=== PATIENT | male | born 1950 | race Two or more races ===

== ENCOUNTER 2022-04-02 03:24 | Inpatient (IN) | payer OTHER, MEDICARE, MEDICAID ==
[~2022-04-02] VITALS: Ht 177.8 cm; Wt 97.9 kg
[2022-04-02 04:53] LABS: Basophils # (auto) 0.2 10 ^3/uL (0-0.2); Basophils % (auto) 1.7 % (0.0-2.0); Eosinophils # (auto) 0 10 ^3/uL (0-0.8); Eosinophils % (auto) 0.2 % (0.0-7.0); Hematocrit 45.2 % (41.0-53.0); Lymphocytes # (auto) 0.9 10 ^3/uL (0.4-5.4); Lymphocytes % (auto) 6.4 % (10.0-50.0); Mean Corpuscular Hgb Conc. 33.2 g/dL (32.0-36.0); Mean Corpuscular Volume 90.4 fL (80.0-100.0); Monocytes # (auto) 0.5 10 ^3/uL (0-1.3); Monocytes % (auto) 3.9 % (0.0-12.0); Neutrophils % (auto) 87.8 % (37.0-80.0); Nucleated Red Blood Cells % 0.1 %; Red Cell Distribution Width 15.8 % (11.8-14.3); White Blood Cell 13.7 10^3/uL (4.4-10.8)
[2022-04-02 05:28] LABS: BUN/Creatinine Ratio 41.3; Calcium 8.6 mg/dL (8.5-10.1); Potassium 4.1 mmol/L (3.5-5.1)
[2022-04-02 05:30] LABS: Bilirubin, Total 0.5 mg/dL (0.2-1.0); Total Protein 6.7 g/dL (6.4-8.2)
[2022-04-02] MEDS ORDERED: SODIUM CHLORIDE 0.9% 1,000 ML IV ONE ×2 (08:00)
[2022-04-02] MEDS ORDERED: cefTRIAXone 1GM/50ML D5W 50 ML IV ONE ×2 (09:15→09:45)
[2022-04-02] MEDS ORDERED: BUPR-160 PO (09:35)
[2022-04-02] MEDS ORDERED: ALPR0.255 PO (09:35)
[2022-04-02] MEDS ORDERED: MET50T PO (09:35)
[2022-04-02] MEDS ORDERED: DIVA125C8 PO (09:35)
[2022-04-02] MEDS ORDERED: FAMO-12 PO (09:35)
[2022-04-02] MEDS ORDERED: AMLO-489 PO (09:35)
[2022-04-02] MEDS ORDERED: HYDR10TA26 PO (09:35)
[2022-04-02] MEDS ORDERED: GLIP5TAB12 PO (09:35)
[2022-04-02] MEDS ORDERED: FLUO-259 PO (09:35)
[2022-04-02] MEDS ORDERED: LISI20TA28 PO (09:35)
[2022-04-02] MEDS ORDERED: SIMV-8 PO (09:35)
[2022-04-02] MEDS ORDERED: ASPI-325 PO (09:35)
[2022-04-02] MEDS ORDERED: METF-372 PO (09:35)
[2022-04-02 09:41] LABS: Cholesterol 193 mg/dL (< 200)
[2022-04-02 09:44] LABS: HDL Cholesterol 41 mg/dL (40-59); LDL Cholesterol 130 mg/dL (< 100); Triglycerides 81 mg/dL (< 150)
[2022-04-02] MEDS ORDERED: PANTOPRAZOLE 40 MG/10 ML VIAL INJ IV ONE (09:45)
[2022-04-02] MEDS ORDERED: DEXTROSE (50%) 50ML SYRG IV PRN (09:45)
[2022-04-02 10:22] LABS: INR 1.06 (0.9-1.15)
[2022-04-02] MEDS: PANTOPRAZOLE 40 MG/10 ML VIAL INJ IV SCH (10:31)
[2022-04-02] MEDS: FLUoxetine HCL 20 MG CAP PO SCH (10:40)
[2022-04-02] MEDS: ATORVASTATIN 20 MG TAB PO SCH (10:40)
[2022-04-02] MEDS: amLODIPine BESYLATE 5 MG TAB PO SCH (10:40)
[2022-04-02] MEDS: SODIUM CHLORIDE 0.9% 1,000 ML IV SCH ×2 (10:45→21:46)
[2022-04-02] MEDS: LISINOPRIL 20 MG TAB PO SCH (11:23)
[2022-04-02] MEDS: METOPROLOL TARTRATE 50 MG TAB PO SCH ×2 (11:23→21:45)
[2022-04-02] MEDS: ACCU-CHEK COMFORT CURVE STRIP VI SCH ×3 (11:30→21:10)
[2022-04-02] MEDS: InsuLIN REG 1unit/0.01ml Soln (100units/ml) SC SCH ×3 (11:34→21:11)
[2022-04-02] MEDS: hydrALAZINE HCL 10 MG TAB PO SCH ×2 (17:32→21:43)
[2022-04-02] MEDS: ACETAMINOPHEN 325 MG TAB PO PRN (21:47)
[2022-04-02 22:00] VITALS: BP 162/73
[2022-04-02 22:29] VITALS: BP 162/73
[2022-04-03] VITALS (7 sets, daily range): BP systolic 116–166; BP diastolic 62–83
[2022-04-03] MEDS: hydrALAZINE HCL 10 MG TAB PO SCH ×3 (05:27→21:18)
[2022-04-03] MEDS: ACETAMINOPHEN 325 MG TAB PO PRN ×2 (05:28→19:49)
[2022-04-03] MEDS: InsuLIN REG 1unit/0.01ml Soln (100units/ml) SC SCH ×4 (06:01→21:19)
[2022-04-03] MEDS: ACCU-CHEK COMFORT CURVE STRIP VI SCH ×4 (06:01→21:19)
[2022-04-03 06:30] LABS: Basophils # (auto) 0.1 10 ^3/uL (0-0.2); Basophils % (auto) 0.7 % (0.0-2.0); Eosinophils # (auto) 0.1 10 ^3/uL (0-0.8); Hematocrit 38.8 % (41.0-53.0); Lymphocytes # (auto) 1.8 10 ^3/uL (0.4-5.4); Lymphocytes % (auto) 17.4 % (10.0-50.0); Mean Corpuscular Hemoglobin 30.1 pg (28.0-32.0); Mean Corpuscular Hgb Conc. 33.4 g/dL (32.0-36.0); Monocytes # (auto) 0.7 10 ^3/uL (0-1.3); Neutrophils # (auto) 7.6 10 ^3/uL (1.6-8.6); Neutrophils % (auto) 73.9 % (37.0-80.0); Red Blood Cells 4.31 10^6/uL (4.5-5.90); Red Cell Distribution Width 15.6 % (11.8-14.3); White Blood Cell 10.3 10^3/uL (4.4-10.8)
[2022-04-03 06:44] LABS: Anion Gap 7 (5-15); Blood Urea Nitrogen 25 mg/dL (7-18); Carbon Dioxide 29 mmol/L (21-32); Chloride 105 mmol/L (98-107); Glucose 100 mg/dL (74-106); Potassium 3.5 mmol/L (3.5-5.1); Sodium 141 mmol/L (136-145)
[2022-04-03 06:49] LABS: Alanine Aminotransferase 15 U/L (16-61); Alkaline Phosphatase 61 U/L (45-117); Aspartate Aminotransferase < 3 U/L (15-37); BUN/Creatinine Ratio 38.5; Bilirubin, Total 0.8 mg/dL (0.2-1.0); GFR African American 154 mL/min; GFR Non-African American 128 mL/min; Total Protein 5.9 g/dL (6.4-8.2)
[2022-04-03] MEDS: cefTRIAXone 1GM/50ML D5W 50 ML IV SCH (10:06)
[2022-04-03] MEDS: PANTOPRAZOLE 40 MG/10 ML VIAL INJ IV SCH (10:06)
[2022-04-03] MEDS: ASPirin-EC 81 mg tab PO SCH (10:08)
[2022-04-03] MEDS: ATORVASTATIN 20 MG TAB PO SCH (10:09)
[2022-04-03] MEDS: METOPROLOL TARTRATE 50 MG TAB PO SCH ×2 (10:10→21:18)
[2022-04-03] MEDS: amLODIPine BESYLATE 5 MG TAB PO SCH (10:10)
[2022-04-03] MEDS: buPROPion HCL 100 MG TAB PO SCH (10:11)
[2022-04-03] MEDS: FLUoxetine HCL 20 MG CAP PO SCH (10:11)
[2022-04-03] MEDS: LISINOPRIL 20 MG TAB PO SCH (10:12)
[2022-04-03] MEDS: SODIUM CHLORIDE 0.9% 1,000 ML IV SCH (12:25)
[2022-04-03] MEDS ORDERED: ONDANSETRON HCL 4 MG/2 ML VIAL IV PRN (13:00)
[2022-04-03 13:54] LABS: Urine Bacteria NONE SEEN /hpf (None Seen); Urine Blood Negative /uL (Negative); Urine Mucus FEW (None Seen); Urine Specific Gravity 1.027 (1.001-1.035); Urine WBC 2 /hpf (0 - 3)
[2022-04-03 14:00] LABS: Alcohol, Urine < 3.0 mg/dL (0-10); Amphetamine Screen, Urine NEGATIVE (NEGATIVE); Barbiturate Scree,Urine NEGATIVE (NEGATIVE); Benzodiazephine Screen, Urine POSITIVE (NEGATIVE); Cannabinoid Screen, Urine NEGATIVE (NEGATIVE); Cocaine Screen, Urine NEGATIVE (NEGATIVE); Opiate Scree,Urine NEGATIVE (NEGATIVE); Phencyclidine Screen, Urine NEGATIVE (NEGATIVE)
[2022-04-04 05:00] VITALS: BP 166/68
[2022-04-04] MEDS: InsuLIN REG 1unit/0.01ml Soln (100units/ml) SC SCH ×4 (05:04→20:42)
[2022-04-04] MEDS: ACCU-CHEK COMFORT CURVE STRIP VI SCH ×4 (05:04→20:43)
[2022-04-04] MEDS: hydrALAZINE HCL 10 MG TAB PO SCH ×3 (05:07→23:51)
[2022-04-04 06:09] LABS: Basophils # (auto) 0.1 10 ^3/uL (0-0.2); Basophils % (auto) 0.7 % (0.0-2.0); Eosinophils # (auto) 0.2 10 ^3/uL (0-0.8); Eosinophils % (auto) 1.8 % (0.0-7.0); Hematocrit 38.9 % (41.0-53.0); Hemoglobin 13.4 g/dL (13.5-17.5); Lymphocytes # (auto) 2.2 10 ^3/uL (0.4-5.4); Lymphocytes % (auto) 25.2 % (10.0-50.0); Mean Corpuscular Hemoglobin 31.1 pg (28.0-32.0); Mean Corpuscular Hgb Conc. 34.5 g/dL (32.0-36.0); Mean Corpuscular Volume 90.2 fL (80.0-100.0); Monocytes # (auto) 0.7 10 ^3/uL (0-1.3); Monocytes % (auto) 8.3 % (0.0-12.0); Neutrophils # (auto) 5.5 10 ^3/uL (1.6-8.6); Red Blood Cells 4.31 10^6/uL (4.5-5.90); Red Cell Distribution Width 15.3 % (11.8-14.3); White Blood Cell 8.6 10^3/uL (4.4-10.8)
[2022-04-04 06:43] LABS: Potassium 3.6 mmol/L (3.5-5.1)
[2022-04-04 06:46] LABS: BUN/Creatinine Ratio 27.8; Calcium 8.3 mg/dL (8.5-10.1); Magnesium 1.8 mg/dL (1.6-2.6); Phosphorus 3.9 mg/dL (2.5-4.90)
[2022-04-04 08:00] VITALS: BP_SYST 143; BP_SYST 166; BP_DIAS 68; BP_DIAS 80
[2022-04-04] MEDS: PANTOPRAZOLE 40 MG/10 ML VIAL INJ IV SCH (08:27)
[2022-04-04] MEDS: cefTRIAXone 1GM/50ML D5W 50 ML IV SCH (08:27)
[2022-04-04] MEDS: ASPirin-EC 81 mg tab PO SCH (08:29)
[2022-04-04] MEDS: ATORVASTATIN 20 MG TAB PO SCH (08:31)
[2022-04-04] MEDS: amLODIPine BESYLATE 5 MG TAB PO SCH (08:34)
[2022-04-04] MEDS: METOPROLOL TARTRATE 50 MG TAB PO SCH ×2 (08:34→22:00)
[2022-04-04] MEDS: buPROPion HCL 100 MG TAB PO SCH (08:35)
[2022-04-04] MEDS: FLUoxetine HCL 20 MG CAP PO SCH (08:35)
[2022-04-04] MEDS: LISINOPRIL 20 MG TAB PO SCH (08:37)
[2022-04-04 12:00] VITALS: BP 157/64
[2022-04-04 16:00] VITALS: BP 114/70
[2022-04-04 20:00] VITALS: BP 157/64
[2022-04-04 22:00] VITALS: BP 154/62
[2022-04-05] VITALS (7 sets, daily range): BP systolic 133–157; BP diastolic 64–79
[2022-04-05] MEDS: ACCU-CHEK COMFORT CURVE STRIP VI SCH ×4 (06:58→21:51)
[2022-04-05] MEDS: InsuLIN REG 1unit/0.01ml Soln (100units/ml) SC SCH ×4 (07:00→21:53)
[2022-04-05] MEDS: hydrALAZINE HCL 10 MG TAB PO SCH ×3 (07:06→21:50)
[2022-04-05] MEDS: ASPirin-EC 81 mg tab PO SCH (09:56)
[2022-04-05] MEDS: LISINOPRIL 20 MG TAB PO SCH (09:56)
[2022-04-05] MEDS: buPROPion HCL 100 MG TAB PO SCH (09:56)
[2022-04-05] MEDS: METOPROLOL TARTRATE 50 MG TAB PO SCH ×2 (09:57→21:50)
[2022-04-05] MEDS: FLUoxetine HCL 20 MG CAP PO SCH (09:57)
[2022-04-05] MEDS: amLODIPine BESYLATE 5 MG TAB PO SCH (09:57)
[2022-04-05] MEDS: ATORVASTATIN 20 MG TAB PO SCH (09:58)
[2022-04-05] MEDS: PANTOPRAZOLE 40 MG/10 ML VIAL INJ IV SCH (09:59)
[2022-04-05] MEDS: cefTRIAXone 1GM/50ML D5W 50 ML IV SCH (10:00)
[2022-04-06 05:00] VITALS: BP 150/51
[2022-04-06] MEDS: hydrALAZINE HCL 10 MG TAB PO SCH ×2 (05:44→14:00)
[2022-04-06] MEDS: ACCU-CHEK COMFORT CURVE STRIP VI SCH ×2 (06:34→11:30)
[2022-04-06] MEDS: InsuLIN REG 1unit/0.01ml Soln (100units/ml) SC SCH ×2 (06:34→11:30)
[2022-04-06 09:00] VITALS: BP_SYST 148; BP_SYST 8; BP_DIAS 69
[2022-04-06] MEDS: PANTOPRAZOLE 40 MG/10 ML VIAL INJ IV SCH (09:15)
[2022-04-06] MEDS: buPROPion HCL 100 MG TAB PO SCH (09:15)
[2022-04-06] MEDS: cefTRIAXone 1GM/50ML D5W 50 ML IV SCH (09:15)
[2022-04-06] MEDS: FLUoxetine HCL 20 MG CAP PO SCH (09:18)
[2022-04-06] MEDS: ASPirin-EC 81 mg tab PO SCH (09:18)
[2022-04-06] MEDS: LISINOPRIL 20 MG TAB PO SCH (09:20)
[2022-04-06] MEDS: amLODIPine BESYLATE 5 MG TAB PO SCH (09:20)
[2022-04-06] MEDS: ATORVASTATIN 20 MG TAB PO SCH (09:21)
[2022-04-06] MEDS: METOPROLOL TARTRATE 50 MG TAB PO SCH (10:00)
[2022-04-06] MEDS ORDERED: CEPH-510 PO (12:18)
[2022-04-06 12:53] VITALS: BP 148/69
[2022-04-06 13:00] VITALS: BP 144/80
== END 2022-04-06 14:30 | disposition hospice, home (50) | DRG 689 ==
LOC: ER 03:24 → EDBD 03:24 → OVERFLOW 09:04 → WEST WING 20:20
PROVIDERS: ADMIT Nurse Practitioner Family; ATTEND Internal Medicine
DX: N39.0 Urinary tract infection, site not specified (principal); G93.41 Metabolic encephalopathy; E44.0 Moderate protein-calorie malnutrition; E11.65 Type 2 diabetes mellitus with hyperglycemia; I10 Essential (primary) hypertension; R56.9 Unspecified convulsions; D72.829 Elevated white blood cell count, unspecified; Z68.34 Body mass index [BMI] 34.0-34.9, adult; Z20.822 Contact with and (suspected) exposure to COVID-19; Z74.01 Bed confinement status; Z86.73 Personal history of transient ischemic attack (TIA), and cerebral infarction without residual deficits; F32.A Depression, unspecified
CPT/HCPCS: 36415; 70450; 80048; 80053; 80061; 80164; 80307; 81001; 82140; 82962; 83036; 83735; 84100; 84443; 84484; 85025; 85610; 87040; 87086; 87426; 92610; 93005; 93886; 96365; 96375; 99291; C9113; G0378; J0696; J1815